=== PATIENT | female | born 1970 | race African-American/Black ===

== ENCOUNTER 2017-05-12 05:42 | Emergency (ER) | payer BC, SELFPAY ==
[2017-05-12] MEDS ORDERED: Lorazepam 1 MG TAB ONE (06:17)
--- NOTE | 2017-05-12 10:14 | RAD ---
PA AND LATERAL CHEST: Date: 05/12/17 HISTORY: Cough, sudden onset of anxiety. COMPARISON: 02/19/12. FINDINGS: Cardiac silhouette and pulmonary vasculature are within normal limits. Lungs remain clear. There has been no interval change from prior exam. IMPRESSION: No acute cardiopulmonary process. POS: J[facility]
== END 2017-05-12 07:55 | disposition home or self-care (01) ==
LOC: ERS 05:42
DX: F41.9 Anxiety disorder, unspecified (principal); J40 Bronchitis, not specified as acute or chronic; I10 Essential (primary) hypertension; G43.909 Migraine, unspecified, not intractable, without status migrainosus; F31.9 Bipolar disorder, unspecified
CPT/HCPCS: 71046